=== PATIENT | male | born 1965 | race Caucasian/White ===

== ENCOUNTER 2018-07-26 19:49 | Emergency (ER) | payer OTHER ==
[~2018-07-26] VITALS: Ht 172.7 cm; Wt 100.8 kg
[2018-07-26 20:09] VITALS: BP_DIAS 95
[2018-07-26] MEDS ORDERED: ketorolac trometh inj. 60 MG/2 ML VIAL IM ONE (20:50)
[2018-07-26] MEDS ORDERED: HYDR-4353 PO (20:55)
[2018-07-26] MEDS ORDERED: IBUP-1986 PO (20:55)
[2018-07-26 20:58] VITALS: BP_SYST 106
== END 2018-07-26 21:20 | disposition home or self-care (01) ==
LOC: ER 19:50
DX: S22.32XA Fracture of one rib, left side, initial encounter for closed fracture (principal); M79.89 Other specified soft tissue disorders; F17.200 Nicotine dependence, unspecified, uncomplicated; Z90.49 Acquired absence of other specified parts of digestive tract; W01.0XXA Fall on same level from slipping, tripping and stumbling without subsequent striking against object, initial encounter; Y93.89 Activity, other specified; Y92.89 Other specified places as the place of occurrence of the external cause; Y99.8 Other external cause status
CPT/HCPCS: 71046; 93005; 96372; 99283; J1885